=== PATIENT | female | born 1985 | race Caucasian/White ===

== ENCOUNTER 2024-05-23 10:03 | Emergency (ER) | payer OTHER, SELFPAY ==
[2024-05-23 10:03] VITALS: BP 158/112
[2024-05-23 11:19] VITALS: BMI 22.8
[2024-05-23] MEDS: ATIVAN 2 MG PO (11:22)
[2024-05-23 11:30] VITALS: BP 150/103
--- NOTE | 2024-05-23 11:33 | EDRN ---
this RN entered the pts room and the pt was crying and hyperventilating, per Timur Goetz this RN gave PO ativan, the pt was agreeable to taking it, the pt stated to this RN, '[place] feel like [place] in [place]', the pt denies SI/HI, VS WNL, will
continue to monitor the pt closely
[2024-05-23 11:50] VITALS: BP 135/95
--- NOTE | 2024-05-23 12:08 | EDRN ---
Timur TAMAYO currently at the pts bedside
--- NOTE | 2024-05-23 12:20 | ED.GENMED ---
History of Present Illness
General
Chief Complaint: Headache
Time Seen by Provider: 05/23/24 11:03
History of Present Illness
History of Present Illness:
38-year-old female presents to the emergency department for evaluation of headache and insomnia. 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 She is also anxious because of the of
her grandmother in the [facility] 2 days ago. On my initial evaluation the patient was sobbing uncontrollably and is acting histrionic and essentially unable to assess
Review of Systems
Review of Systems
Allergies reviewed?: Yes
All Other Systems: ROS reviewed and negative except as documented in HPI and ROS
Phy Exam
Physical Exam
Physical Exam:
GEN: Sobbing uncontrollably, difficult to redirect
HEENT: Oral mucosa moist, no scleral icterus
Cardiac: Regular rate
Lung: No respiratory distress, no tachypnea
MSK: No gross deformity or injuries
Skin: Good color, no pallor or jaundice, no rashes
Neuro: AO x3, moves all extremities freely
Psych: Anxious, tearful, challenging to redirect
Course
Orders/Labs/Results
Orders:
Orders
05/23/24 11:17
Lorazepam [Ativan] 2 mg PO NOW STA
Vital Signs
Initial and Last Documented VS:
Initial Vital Signs
Temp Pulse Resp BP Pulse Ox
98.7 F 121 20 158/112 100
05/23/24 10:03 05/23/24 10:03 05/23/24 10:03 05/23/24 10:03 05/23/24 10:03
Last Documented Vital Signs
Temp Pulse Resp BP Pulse Ox
98.6 F 81 16 135/95 100
05/23/24 11:30 05/23/24 11:50 05/23/24 11:50 05/23/24 11:50 05/23/24 11:50
MDM/Problems Addressed
MDM/Problems Addressed:
Patient was given lorazepam with modest improvement. She will be discharged with a small prescription of lorazepam due to her severe anxiety related to nonmedical issues. She is no suicidal or homicidal ideation thus there is no indication for
crisis consultation
*Critical Care Note
Total Time (30-74mins, 75-104mins- exclusive of procedures): Not Applicable
ED Attending Note
-
Portions of this chart may have been created with voice recognition software.� Occasional wrong word or��sound alike� substitutions may have occurred due to the inherent limitations of voice recognition software.
Discharge Plan
Departure
Patient Disposition: Home (Routine Discharge)
Date of Disposition: 05/23/24
Time of Disposition: 12:21
Patient with high blood pressure during this ER visit?: No
Discharge Problem:
Grief reaction, Stress and adjustment reaction
Instructions: Coping with stress
Prescriptions:
New
lorazepam 1 mg tablet
1 - 2 mg PO HS PRN (Reason: Sleep) Qty: 10 0RF
Referrals:
UNKNOWN - PT DOES,NOT KNOW [Family Provider] -
Interventions
Interventions:
*Risk Screen - Suicide Last Done: 05/23/24 11:34
*General Assessment Last Done: 05/23/24 10:03
*Neglect/Abuse Screening Last Done: 05/23/24 10:03
*ED- Fall Risk Assessment Last Done: 05/23/24 11:30
*ED COVID-19 Vaccine History Last Done: 05/23/24 11:30
*Nursing Disposition Last Done: 05/23/24 12:27
ED- Neurological Assessment Last Done: 05/23/24 11:30
Discharge Date and Time
Discharge Date/Time: 05/23/24 12:27
Print Language: THAI
== END 2024-05-23 12:27 | disposition home or self-care (01) ==
LOC: EMR 10:03
PROVIDERS: EMERGENCY PHYSICIAN Emergency Medicine
DX: F43.22 Adjustment disorder with anxiety (principal); F43.0 Acute stress reaction; Z63.4 Disappearance and death of family member; Z56.4 Discord with boss and workmates
CPT/HCPCS: 99283